=== PATIENT | female | born 1975 | race Two or more races ===

== ENCOUNTER 2016-11-24 07:40 | Emergency (ER) | payer BC ==
[2016-11-24] MEDS ORDERED: IPRATROPIUM/ALBUTEROL 0.5-2.5 MG/3 ML AMPUL NEB ONE (09:08)
--- NOTE | 2016-11-24 09:28 | ER Document Report ---
ED Respiratory Problem - General Chief Complaint: Breathing Difficulty Stated Complaint: DIFFICULTY BREATHING Mode of Arrival: Ambulatory Information source: Patient TRAVEL OUTSIDE OF THE [place] IN LAST 30 DAYS: No - HPI Patient complains to provider of: Short of breath Notes: Patient denies complaints of shortness of breath. The patient has a history of COPD as well as high cholesterol. She denies any history of hypertension, diabetes, CAD. She is a smoker. She denies drug use. States that for the last 4-5 days she's been feeling short of breath. She's had a mild cough. She denies any sputum production. She felt like she may have had a fever 3 or 4 days ago, but denies fever now. She denies any chest pain other than when she coughs. She denies any leg pain or swelling. She recently drove to and from [place]. She denies being on blood thinners, no hormones, no history of DVT or PE, no known cancer history. She denies any rashes. No abdominal pain. No nausea vomiting diarrhea. She has no other complaints at this moment. - Related Data Allergies/Adverse Reactions: No Known Allergies Allergy (Verified 11/24/16 07:53) Past Medical History - Social History Smoking Status: Current Every Day Smoker Family History: Reviewed & Not Pertinent Patient has suicidal ideation: No Patient has homicidal ideation: No - Past Medical History Cardiac Medical History: Pulmonary Medical History: Reports: Hx Bronchitis, Hx COPD Neurological Medical History: Reports: Hx Migraine Renal/ Medical History: Denies: Hx Peritoneal Dialysis GI Medical History: Musculoskeltal Medical History: Denies Hx Arthritis Infectious Medical History: Past Surgical History: Reports: Hx Breast Surgery - bilateral lumpectomy, Hx Gynecologic Surgery - RIGHT OOPHORECTOMY. Denies: Hx Pacemaker - Immunizations Hx Diphtheria, Pertussis, Tetanus Vaccination: Yes - within 10 yrs Review of Systems - Review of Systems -: Yes All other systems reviewed and negative Physical Exam - Vital signs Vitals: Temp Pulse Resp BP Pulse Ox 98.2 F 93 20 122/67 95 11/24/16 07:53 11/24/16 07:53 11/24/16 07:53 11/24/16 07:53 11/24/16 07:53 - General General appearance: Appears well, Alert - HEENT Head: Normocephalic, Atraumatic Eyes: Normal Pupils: PERRL Mucous membranes: Normal - Respiratory Respiratory status: No respiratory distress Chest status: Nontender Breath sounds: Wheezing - Mild expiratory. Good air movement. Chest palpation: Normal - Cardiovascular Rhythm: Regular Heart sounds: Normal auscultation Murmur: No - Abdominal Inspection: Normal Distension: No distension Bowel sounds: Normal Tenderness: Nontender Organomegaly: No organomegaly - Back Back: Normal, Nontender - Extremities General upper extremity: Normal inspection, Nontender, Normal color, Normal ROM , Normal temperature General lower extremity: Normal inspection, Nontender, Normal color, Normal ROM , Normal temperature, Normal weight bearing. No: Tender, Edema, Pita's sign - Neurological Neuro grossly intact: Yes Cognition: Normal Orientation: AAOx4 [place] Coma Scale Eye Opening: Spontaneous [place] Coma Scale Verbal: Oriented [place] Coma Scale Motor: Obeys Commands [place] Coma Scale Total: 15 Speech: Normal Motor strength normal: LUE, RUE, LLE, RLE Sensory: Normal - Psychological Associated symptoms: Normal affect, Normal mood - Skin Skin Temperature: Warm Skin Moisture: Dry Skin Color: Normal Course - Re-evaluation Re-evalutation: 11/24/16 11:32 Patient is nontoxic appearing with stable vital signs. Patient remained stable here in the emergency department. Re-Evaluate of patient at this time, patient states that she is feeling significantly better after her breathing treatment. Lungs sounds have improved. While remained stable. EKG is negative. The patient had no chest pain she has been feeling more short of breath for the last several days. Troponin is negative. Patient had a recent drive to and from [place], therefore CT of the pulmonary arteries was ordered, this was negative for PE or other acute pulmonary findings. Patient will be given a dose of Solu-Medrol here in the emergency department will be discharged home on prednisone for COPD exacerbation. She was instructed to follow-up with her primary care doctor at the next available appointment, return for chest pain, difficulty breathing, high fever, persistent vomiting, or any further concerns. The patient is noted to have elevated blood pressure during today's emergency department visit. The patient was informed of this finding. The patient was instructed that this may be related to pre-hypertension and requires further evaluation with a primary care provider. The patient has no hypertensive symptoms at this time. The patient's emergency department workup and current diagnosis were explained to the patient and or family. Follow-up instructions were provided. Medications if prescribed were discussed. Instructions for when to return to the emergency department including specific worrisome symptoms were discussed with the patient and/or family. - Vital Signs Vital signs: Temp Pulse Resp BP Pulse Ox 98.2 F 81 20 123/68 97 11/24/16 07:53 11/24/16 09:31 11/24/16 10:01 11/24/16 10:01 11/24/16 10:01 - Laboratory Result Diagrams: 11/24/16 09:25 11/24/16 09:25 Laboratory results interpreted by me: 11/24/16 11/24/16 09:25 09:25 Hct 35.8 L RDW 14.8 H Plt Count 127 L Potassium 3.4 L AST 70 H ALT 82 H - EKG Interpretation by Me EKG shows normal: Sinus rhythm, [place], Intervals, QRS Complexes, ST-T Waves Rate: Normal When compared to previous EKG there are: No significant change - 12/04/14 Discharge - Discharge Clinical Impression: COPD exacerbation Condition: Stable Disposition: HOME, SELF-CARE Instructions: Chronic Obstructive Lung Disease (OM), Stop Smoking ([facility]) Additional Instructions: Take medications as prescribed. Follow-up with your doctor at the next available appointment for reevaluation. Follow-up sooner for chest pain, difficulty breathing, high fever, persistent vomiting, or any further concerns. Your blood pressure was elevated during today's visit. Have this rechecked with your doctor. Prescriptions: Albuterol Sulfate [Proair HFA Inhalation Aerosol 8.5 gm MDI] 2 puff IH Q4 PRN # 1 mdi PRN Reason: Prednisone 60 mg PO DAILY #15 tablet Forms: Elevated Blood Pressure, Smoking Cessation Education
[2016-11-24 09:44] LABS: ABSOLUTE EOSINOPHILS # (AUTO) 0.1 10^3/uL (0.0-0.6); ABSOLUTE LYMPHOCYTES (AUTO) 1.3 10^3/uL (0.5-4.7); ABSOLUTE MONOCYTES (AUTO) 0.6 10^3/uL (0.1-1.4); BASOPHILS % (AUTO) 0.4 % (0-2); EOSINOPHILS % (AUTO) 0.8 % (0-6); HEMATOCRIT 35.8 % (36.0-47.0); HGB HCT DIFFERENCE 0.2; LYMPHOCYTES % (AUTO) 22.2 % (13-45); MEAN CORPUSCULAR HEMOGLOBIN 29.5 pg (27.0-33.4); MEAN CORPUSCULAR HGB CONC 33.6 g/dL (32.0-36.0); MEAN CORPUSCULAR VOLUME 88 fl (80-97); MONOCYTES % (AUTO) 10.4 % (3-13); RED BLOOD COUNT 4.08 10^6/uL (3.72-5.28); RED CELL DISTRIBUTION WIDTH 14.8 % (11.5-14.0); SEGMENTED NEUTROPHILS % (AUTO) 66.2 % (42-78); WHITE BLOOD COUNT 6.1 10^3/uL (4.0-10.5)
[2016-11-24 10:00] LABS: ALANINE AMINOTRANSFERASE 82 U/L (9-52); ALBUMIN 3.8 g/dL (3.5-5.0); ALKALINE PHOSPHATASE 125 U/L (38-126); ANION GAP 9 (5-19); ASPARTATE AMINO TRANSFERASE 70 U/L (14-36); BILIRUBIN,DIRECT 0.1 mg/dL (0.0-0.4); BILIRUBIN,TOTAL 0.4 mg/dL (0.2-1.3); BLOOD UREA NITROGEN 9 mg/dL (7-20); CALCIUM 8.7 mg/dL (8.4-10.2); CARBON DIOXIDE 27 mmol/L (22-30); CHLORIDE 107 mmol/L (98-107); CREATINE KINASE 43 U/L (30-135); CREATININE RESULT 0.54 mg/dL (0.52-1.25); GLUCOSE 91 mg/dL (75-110); POTASSIUM 3.4 mmol/L (3.6-5.0); SODIUM 142.9 mmol/L (137-145); TOTAL PROTEIN 6.5 g/dL (6.3-8.2)
[2016-11-24 10:10] LABS: TROPONIN I < 0.012 ng/mL
[2016-11-24] MEDS ORDERED: METHYLPREDNISOLONE INJ 125 MG/2 ML SDV IV ONE (10:54)
[2016-11-24 13:33] VITALS: BP 105/59
--- NOTE | 2016-11-24 15:41 | EKG REPORT ---
SEVERITY:- NORMAL ECG - SINUS RHYTHM : Confirmed by: Debbie oCrdon MD 24-Nov-2016 15:40:53
== END 2016-11-24 12:45 | disposition home or self-care (01) ==
LOC: ER 07:40
DX: J44.1 Chronic obstructive pulmonary disease with (acute) exacerbation (principal); R06.02 Shortness of breath; R03.0 Elevated blood-pressure reading, without diagnosis of hypertension; R05 Cough; F17.200 Nicotine dependence, unspecified, uncomplicated
CPT/HCPCS: 93005; 94640; 99285; 96374; 36415; 82550; 84703; 85025; 80053; 84484; 83880; 71275; 93010; J2930; J7620